=== PATIENT | male | born 1980 | race Hispanic/Latino ===

== ENCOUNTER 2018-10-24 16:51 | Emergency (ER) | payer BC ==
[2018-10-24 17:57] LABS: BASOPHILS % (AUTO) 0.7 % (0.0-5.0); HEMATOCRIT 42.7 % (42-54); LYMPHOCYTES % (AUTO) 34.2 % (21.0-51.0); MEAN CORPUSCULAR HGB CONC 34.7 g/dL (32.0-36.0); MEAN CORPUSCULAR VOLUME 86.3 fL (79-99); NEUTROPHILS % (AUTO) 48.1 % (40.0-77.0); PLATELET COUNT (AUTO) 214 K/uL (130-400); RED BLOOD CELL COUNT(AUTO) 4.94 MIL/uL (4.50-6.20); RED CELL DISTRIBUTION WIDTH 13.7 % (11.0-15.5)
[2018-10-24 18:18] LABS: CREATININE 1.1 mg/dL (0.5-1.5)
[2018-10-24 18:23] LABS: ALBUMIN 4.4 g/dL (3.5-5.0); BILIRUBIN,TOTAL 0.4 mg/dL (0.2-1.0); TOTAL PROTEIN, SERUM 7.9 g/dL (6.0-8.3)
== END 2018-10-24 18:45 | disposition home or self-care (01) ==
LOC: EDH 16:51
DX: R20.2 Paresthesia of skin (principal); M54.2 Cervicalgia; F41.9 Anxiety disorder, unspecified; Z87.891 Personal history of nicotine dependence
CPT/HCPCS: 36415; 72125; 80053; 85025

== ENCOUNTER 2021-12-29 19:09 | Emergency (ER) | payer BC ==
[~2021-12-29] VITALS: Ht 177.8 cm; Wt 97.5 kg
[2021-12-29] MEDS ORDERED: KETOROLAC 15MG/ML VIAL (15MG/ML) ONE (21:15)
[2021-12-29] MEDS ORDERED: KETOROLAC 15MG/ML VIAL (15MG/ML) IM ONE (21:30)
[2021-12-29] MEDS ORDERED: CYCL5TAB PO (21:51)
[2021-12-29 21:56] VITALS: BP 132/74
== END 2021-12-29 22:01 | disposition home or self-care (01) ==
LOC: EDH 19:09
DX: M54.50 Low back pain, unspecified (principal); M79.631 Pain in right forearm; Z88.8 Allergy status to other drugs, medicaments and biological substances; W01.0XXA Fall on same level from slipping, tripping and stumbling without subsequent striking against object, initial encounter; Y93.89 Activity, other specified; Y92.89 Other specified places as the place of occurrence of the external cause; Y99.8 Other external cause status
CPT/HCPCS: 99284; 72040; 73090; 72100; 96372; J1885